=== PATIENT | female | born 1990 | race Caucasian/White ===

== ENCOUNTER 2020-11-28 11:24 | Inpatient (IN) ==
[2020-11-28] MEDS ORDERED: CeFAZolin 2,000 MG/50 ML BAG IVPB ONE (11:39)
[2020-11-28] MEDS ORDERED: Oxytocin 20 units/ LR 1000 mL 20 UNIT/1,000 ML BAG IVC ONE (11:39)
[2020-11-28] MEDS ORDERED: Famotidine 20 MG/2 ML VIAL IVP ONE (11:39)
[2020-11-28] MEDS ORDERED: Ringers Solution, Lactated 1,000 ML IVC ONE (11:39)
[2020-11-28] MEDS ORDERED: Metoclopramide 10 MG/2 ML VIAL IVP ONE (11:39)
[2020-11-28] MEDS ORDERED: Oxytocin 20 units/ LR 1000 mL 20 UNIT/1,000 ML BAG IVC SCH ×3 (11:45→17:30)
[2020-11-28] MEDS ORDERED: Ringers Solution, Lactated 1,000 ML IVC SCH ×2 (11:45→17:09)
[2020-11-28] MEDS ORDERED: Clindamycin 900 MG/50 ML 900 MG/50 ML IV.SOLN IVPB STA (12:51)
[2020-11-28 13:01] LABS: Basophils # 0.1 K/mcL (0.0-0.2); Basophils % 0.5 %; Eosinophils # 0.2 K/mcL (0.0-0.6); Eosinophils % 1.3 %; Hematocrit 32.9 % (35.3-44.9); Immature Granulocytes % 0.5 % (0-4); Lymphocytes # 3.3 K/mcL (0.6-4.6); Lymphocytes % 17.4 %; Mean Corpuscular HGB Conc 33.4 g/dL (31.6-35.5); Mean Corpuscular Hemoglobin 30.1 pg (28.0-33.3); Mean Corpuscular Volume 89.9 fL (83.0-100.0); Mean Platelet Volume 10.6 fL (9.4-12.4); Monocytes # 0.8 K/mcL (0.0-1.3); Monocytes % 4.4 %; Neutrophils # 14.3 K/mcL (1.6-8.9); Platelet Count 362 K/mcL (140-400); Red Blood Count 3.66 M/mcL (3.82-4.97); Red Cell Distribution Width 12.5 % (11.5-14.5); Segmented Neutrophils % 75.9 %; White Blood Count 18.8 K/mcL (4.3-11.1)
[2020-11-28 13:04] LABS: Amphetamine Screen,Urine Negative ng/mL (Cutoff=1000); Barbiturate Screen,Urine Negative ng/mL (Cutoff=200); Benzodiazepines Screen,Urine Negative ng/mL (Cutoff=200); Cannabinoid Screen,Urine Negative ng/mL (Cutoff = 50); Cocaine Screen,Urine Negative ng/mL (Cutoff= 300); Opiate Screen,Urine Negative ng/mL (Cutoff=300); Phencyclidine Screen,Urine Negative ng/mL (Cutoff=25)
[2020-11-28] MEDS ORDERED: Promethazine 6.25 MG in Water for inj. (sterile) 20 ML IVPB PRN (13:07)
[2020-11-28] MEDS ORDERED: Ondansetron 4 MG/2 ML VIAL IVP PRN ×3 (13:07→17:25)
[2020-11-28] MEDS ORDERED: *HR* OxyCODONE Immed Rel 5 MG TABLET PO PRN ×2 (13:07→17:25)
[2020-11-28] MEDS ORDERED: *HR* FentaNYL (PF) 100 MCG/2 ML VIAL IVP PRN (13:07)
[2020-11-28] MEDS ORDERED: *HR* Nalbuphine 10 MG/ML AMPUL IV PRN (13:12)
[2020-11-28] MEDS ORDERED: *HR* FentaNYL (PF) 100 MCG/2 ML VIAL ONE (13:20)
[2020-11-28] MEDS ORDERED: *HR* Morphine Sulfate/PF 10 MG/10 ML AMPUL ONE (13:20)
[2020-11-28] MEDS ORDERED: Ondansetron 4 MG/2 ML VIAL ONE (13:23)
[2020-11-28] MEDS ORDERED: *HR* Phenylephrine 10 MG/ML VIAL ONE (13:23)
[2020-11-28] MEDS ORDERED: Acetaminophen IV 1,000 MG/100 ML BAG IVPB ONE (13:56)
[2020-11-28] MEDS ORDERED: Ketorolac 30 MG/ML VIAL ONE (14:21)
[2020-11-28] MEDS ORDERED: Ibuprofen 600 MG TABLET PO PRN (17:09)
[2020-11-28] MEDS ORDERED: metroNIDAZOLE 500 MG TABLET PO SCH (17:09)
[2020-11-28] MEDS ORDERED: *HR* OxyCODONE/APAP 5/325 TABLET PO PRN (17:09)
[2020-11-28] MEDS ORDERED: Sennosides 8.6 MG TABLET PO PRN ×2 (17:09→17:25)
[2020-11-28] MEDS ORDERED: Simethicone 80 MG TAB.CHEW PO PRN ×2 (17:09→17:25)
[2020-11-28] MEDS ORDERED: Metoclopramide 10 MG/2 ML VIAL IVP PRN ×2 (17:09→17:25)
[2020-11-28] MEDS ORDERED: Naloxone 0.4 MG/ML INJ IVP PRN (17:25)
[2020-11-28] MEDS: *HR* OxyCODONE/APAP 5/325 TABLET PO PRN (17:51)
[2020-11-28] MEDS: Ibuprofen 600 MG TABLET PO PRN (17:51)
[2020-11-28] MEDS: metroNIDAZOLE 500 MG TABLET PO SCH (19:50)
[2020-11-28] MEDS ORDERED: Ringers Solution, Lactated 500 ML IVC ONE (21:31)
[2020-11-28] MEDS: GuaiFENesin/Pseudophedrine TABLET PO SCH (22:03)
[2020-11-29] MEDS ORDERED: Ringers Solution, Lactated 1,000 ML ONE (02:32)
[2020-11-29] MEDS: Ibuprofen 600 MG TABLET PO PRN ×4 (02:39→21:36)
[2020-11-29] MEDS: *HR* OxyCODONE/APAP 5/325 TABLET PO PRN (03:14)
[2020-11-29 03:47] LABS: Basophils # 0.1 K/mcL (0.0-0.2); Basophils % 0.4 %; Eosinophils # 0.3 K/mcL (0.0-0.6); Eosinophils % 1.3 %; Hematocrit 30.8 % (35.3-44.9); Hemoglobin 10.1 g/dL (11.5-15.4); Immature Granulocytes % 0.5 % (0-4); Lymphocytes # 3.6 K/mcL (0.6-4.6); Lymphocytes % 16.5 %; Mean Corpuscular HGB Conc 32.8 g/dL (31.6-35.5); Mean Corpuscular Volume 91.4 fL (83.0-100.0); Mean Platelet Volume 10.3 fL (9.4-12.4); Monocytes # 1.1 K/mcL (0.0-1.3); Monocytes % 5.1 %; Neutrophils # 16.4 K/mcL (1.6-8.9); Platelet Count 312 K/mcL (140-400); Red Blood Count 3.37 M/mcL (3.82-4.97); Red Cell Distribution Width 12.5 % (11.5-14.5); Segmented Neutrophils % 76.2 %; White Blood Count 21.6 K/mcL (4.3-11.1)
[2020-11-29] MEDS: GuaiFENesin/Pseudophedrine TABLET PO SCH ×2 (08:15→20:48)
[2020-11-29] MEDS: metroNIDAZOLE 500 MG TABLET PO SCH ×3 (08:16→20:48)
[2020-11-29] MEDS ORDERED: Prenatal Vit/FA 1 EACH TABLET PO SCH ×2 (09:00)
[2020-11-29] MEDS: hydrOXYzine pamoate 25 MG CAPSULE PO PRN ×2 (13:56→20:48)
[2020-11-29] MEDS: Acetaminophen 325 MG TABLET PO PRN ×2 (15:13→21:36)
[2020-11-29 20:56] VITALS: BP 141/88
== END 2020-11-30 00:20 | disposition home or self-care (01) | DRG 539 ==
LOC: 1NENULAB 11:24 → 1NENUOBS 16:52
PROVIDERS: ADMIT Obstetrics & Gynecology; ATTEND Obstetrics & Gynecology